=== PATIENT | female | born 1985 | race American Indian/Alaskan Native ===

== ENCOUNTER 2020-12-01 21:54 | Emergency (ER) | payer SELFPAY ==
[2020-12-01 22:17] VITALS: BP 102/64
--- NOTE | 2020-12-01 23:12 | Emergency Department Report ---
ED General Adult HPI - General Chief complaint: Urogenital-Female Stated complaint: vaginal discharge Time Seen by Provider: 12/01/20 22:56 Source: patient Mode of arrival: Ambulatory Limitations: No Limitations - History of Present Illness Initial comments: 35-year-old female patient presents to the emergency department with complaints of malodorous vaginal discharge for 3 weeks. Patient has engaged in unprotected sexual intercourse. Patient has not consulted her compressed yeast supervisor regarding her symptoms. Patient states her compressed yeast supervisor discussed the possibility of pelvic inflammatory disease with her on one prior occasion, but she was never formally diagnosed with this condition. Last menstrual cycle was approximately 4 weeks ago. Denies fever, chills, abdominal pain, pelvic pain, dysfunctional uterine bleeding. Denies all other complaints at this time. - Related Data Allergies Allergy/AdvReac Type Severity Reaction Status Date / Time No Known Allergies Allergy Unverified 12/01/20 23:33 ED Review of Systems ROS: Stated complaint: STD/ TEST Other details as noted in HPI Other: GENERAL: Negative for fever, chills, weight change, anorexia, fatigue. ENT: Negative for ear pain, difficulty hearing, sore throat, nasal congestion, epistaxis. CARDIOVASCULAR: Negative for chest pain, palpitations, lower extremity swelling. PULMONARY: Negative for cough, dyspnea, wheezing, orthopnea, cyanosis. GASTROINTESTINAL: Negative for abdominal pain, nausea, vomiting, diarrhea, constipation. GENITOURINARY: Positive for vaginal discharge. MUSCULOSKELETAL: Negative for joint pain, joint swelling, myalgias, back pain, neck pain. NEUROLOGICAL: Negative for headache, seizure, syncope, paresthesias, weakness. INTEGUMENTARY: Negative for erythema, rash, diaphoresis, laceration, ecchymosis. HEMATOLOGICAL: Negative for hemoptysis, hematemesis, hematochezia, hematuria. PSYCHIATRIC: Negative for hallucinations, suicidal ideation, homicidal ideation, anxiety, depression. ED Past Medical Hx - Past Medical History Previous Medical History?: No - Surgical History Past Surgical History?: No ED Physical Exam - General Limitations: No Limitations - Other Other exam information: General: Awake, appropriately interactive, no acute distress. Neck: Supple. Full range of motion intact. Cardiovascular: Normal peripheral perfusion. Pulmonary: No respiratory distress. Patient is speaking normally without use of accessory muscles. Abdomen: Soft, nontender, nondistended. 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 Normal external inspection. Cervical os is closed. There is no cervical motion tenderness. Minimal blood in the vaginal vault. No discharge. No adnexal tenderness or masses. No uterine tenderness. Skin: No apparent rashes or lesions. Neurological: No facial asymmetry. Speech is clear. Follows commands. Patient is alert and oriented. Musculoskeletal: Moves all four extremities spontaneously with normal range of motion. Psych: Cooperative. Appropriate mood and affect. ED Course Vital Signs 12/01/20 22:09 Temperature 98.4 F Pulse Rate 71 Respiratory 18 Rate Blood Pressure 102/64 O2 Sat by Pulse 98 Oximetry ED Medical Decision Making - Medical Decision Making Differential diagnosis including but not limited to: pelvic inflammatory disease, , bacterial vaginosis, vulvovaginal candidiasis On reevaluation, patient remains stable. test is negative. There is no vaginal discharge or tenderness on pelvic examination. Patient is afebrile, no abdominal pain, no pelvic tenderness. Presentation is not consistent with pelvic inflammatory disease. STD testing is currently unavailable at this facility. No clinical indication for further diagnostic work-up on an emergent basis. Patient will be discharged from the emergency department and referred to [facility] as well as compressed yeast supervisor for close outpatient follow-up. Strict return precautions provided. History, exam, diagnostic testing, and current condition do not suggest worrisome pathology to warrant further testing, continued ED treatment, admission, or surgical evaluation at this point. Given the low probability of a significant medical illness, it would be more likely to result in harm than benefit to perform further testing at this stage. Discussed findings, presumptive diagnosis, need for follow-up and specific signs/symptoms that should prompt immediate return to the emergency department. Instructions were explained in detail to the patient in addition to giving written discharge information. Patient expressed understanding and was given the opportunity to ask questions, all of which were satisfactorily answered prior to discharge home. Critical care attestation.: If time is entered above; I have spent that time in minutes in the direct care of this critically ill patient, excluding procedure time. ED Disposition Clinical Impression: History of vaginal discharge Disposition: 01 HOME / SELF CARE / HOMELESS Is pt being admited?: No Does the pt Need Aspirin: No Condition: Stable Instructions: Safe Sex Additional Instructions: STD testing is not available in the emergency department. Follow-up with compressed yeast supervisor and [facility] this week. See referral information below. Return to the emergency department immediately for new or worsening symptoms. Referrals: KANDACE BOSWELL JR, MD [Staff Physician] - 3-5 Days [facility] [Outside] - 3-5 Days Time of Disposition: 01:02
== END 2020-12-02 11:18 | disposition home or self-care (01) ==
LOC: ED 21:54
DX: N89.8 Other specified noninflammatory disorders of vagina (principal)
CPT/HCPCS: 36415; 84703; 99283